=== PATIENT | female | born 1985 | race Hispanic/Latino ===

== ENCOUNTER 2017-11-28 10:34 | Day surgery (SDC) | payer BC ==
[2017-11-25 13:58] VITALS: BMI 25.8
[2017-11-28 11:53] VITALS: RESP 18
[2017-11-28 12:27] LABS: HEMOGLOBIN 12.9 g/dL (12.0-16.0); MEAN CELL VOLUME 95.1 fl (81.0-99.0); MEAN CORPUSCULAR HEMOGLOBIN 32.9 pg (27.0-31.0); MEAN CORPUSCULAR HGB CONC 34.6 g/dL (33.0-37.0); RBC 3.92 Mil/uL (3.80-5.20); RED CELL DISTRIBUTION WIDTH 12.8 % (11.5-14.5); WHITE BLOOD COUNT 3.5 K/uL (4.8-10.8)
[2017-11-28] MEDS ORDERED: Clindamycin 600mg/50ml NS 600 MG/50 ML BAG IVPB ONE (13:57)
[2017-11-28] MEDS ORDERED: Rocuronium 10 mg/ml (5 ml) ONE ×2 (14:28→18:22)
[2017-11-28] MEDS ORDERED: Succinylcholine 200 mg/10 ml Inj IV ONE (14:28)
[2017-11-28] MEDS ORDERED: Propofol 10 mg/ml Inj (20 ML) ONE (14:28)
[2017-11-28] MEDS ORDERED: Trimethobenzamide 200 mg/2 mL Inj IM ONE (15:44)
[2017-11-28] MEDS ORDERED: Neostigmine 1:1000 (1 mg/ml) Inj ONE (16:04)
[2017-11-28] MEDS ORDERED: Lidocaine 4% (Laryng-O-Jet) Kit MM ONE (16:04)
[2017-11-28] MEDS ORDERED: Bupivacaine HCl 0.25% PF (30 ml) Inj ONE (16:08)
[2017-11-28] MEDS ORDERED: Midazolam 2 MG/2 ML VIAL ONE (16:46)
[2017-11-28] MEDS ORDERED: Lactated Ringer's 1,000 ML IV ONE ×7 (16:47→19:40)
[2017-11-28] MEDS ORDERED: Dexamethasone 4 mg/1 ml ONE (17:06)
[2017-11-28] MEDS ORDERED: Bupivacaine 0.5% Inj(30mL) IJ ONE ×2 (17:30)
[2017-11-28] MEDS ORDERED: Desflurane Inhalation Anesthetic Liq (240 ml) ONE (17:54)
[2017-11-28] MEDS ORDERED: Bupivacaine HCl 0.5% PF (30 ml) Inj ONE (18:36)
[2017-11-28] MEDS ORDERED: Silver Nitrate Topical - Stick ONE (18:41)
[2017-11-28] MEDS ORDERED: Oxycodone/Acetaminophen 5/325 mg Tab PO PRN (18:53)
[2017-11-28] MEDS ORDERED: Lactated Ringer's 1,000 ML IV SCH ×2 (19:00→19:30)
[2017-11-28] MEDS ORDERED: HYDROmorphone 0.5 mg/0.5 ml ISec IVP PRN (19:23)
--- NOTE | 2017-11-28 19:23 | PCM.ANESB5 ---
Transverse Abdominis Block - Transverse Abdominis Plane Date of Procedure: 11/28/17 Anesthesiologist: Emerson Pre-Procedure Diagnosis: Endometriosis Post-Procedure Diagnosis: Same Procedure Performed: Transverse Abdominis Plane Nerve Block Left, Transverse Abdominis Plane Nerve Block Right - Procedure Transverse Abdominis Plane Nerve Block: The procedure was explained to the patient that it is for post-operative pain management and would be performed after surgery. Consent was obtained prior to surgery after a thorough discussion with the patient regarding the benefits and possible complications of transverse abdominis plane block. After the surgery had concluded and before the patient emerged from general anesthesia, time-out was held with the circulating nurse to re-confirm the appropriate block. With the patient in supine position, the ultrasound probe was placed transverse to the abdominal wall at the mid-axillary line above the iliac crest of the appropriate side. The skin, subcutaneous tissue, fat, external oblique muscle, internal oblique muscle, and the transverse abdominis muscle were identified. The general area of the block site was then prepped with Betadine three times. At this point, a # 21-gauge Stimuplex 4-inch needle was inserted posterior to and in plane with the ultrasound probe and directed anteriorly. Needle was advanced under direct ultrasound visualization until it reached the plane between the internal oblique and transverse abdominis muscles. After appropriate placement, 2mL of local anesthetic solution was injected. When the transverse abdominis plane was observed expanding in an ellipsoid way, the rest of the solution was slowly injected. A total of __20____ mL of __0.25%___ % ___ _bupivicaine was used for this block. The needle was then removed and sterile dressing was applied. Similarly, the same procedure was performed on the other side using the same medications. The patient had stable vital signs throughout and had no untoward complications after emergence from general anesthesia in the recovery room.
[2017-11-28] MEDS ORDERED: Morphine 4 MG/ML VIAL ONE ×2 (19:36→19:38)
[2017-11-28] MEDS ORDERED: Morphine 4 MG/ML VIAL IVP PRN (19:36)
[2017-11-28 20:01] VITALS: PULSE 76
[2017-11-28] MEDS ORDERED: Morphine 4 MG/ML VIAL IVP STA (20:05)
[2017-11-28 20:53] VITALS: BP 127/70; TEMP 97.5; O2SAT 99
--- NOTE | 2017-12-17 09:44 | PCM.OP ---
Operative Report - Operative Report Date of Surgery/Procedure: 11/28/17 Time of Surgery/Procedure: 14:00 Surgeon: Dr. Luke Whitaker Director Of Services: Dr. Gary Euceda Anesthesia/Sedation: general/Dr. Norman Pre-Operative Diagnosis: Abdominal pain and endometriosis Post-Operative Diagnosis: multiple dense adhesions to sigmoid colon Indication for Surgery: as above Operative Findings: as above Procedure/Operation Description: 1-lysis of adhsesion to the sigmoid colon and rectum. Brief History: This 32 year old woman was broufght to the operaing room by Dr. euceda when he noted sigmoid and rectal adhesions obscruing the pelvis. Intraoperative surgery consultation was requested. Description of the Procedure: Dr. Jaqueline valdez already initiated the robotic procedure (separate dictation Dr. Euceda). After taking control fo the robotic console the adhesiosn to the sigmnoid colon nwere lysed with blunt and sharp dissection with the aid of electrocautery. The adhesions invovled the sigmoid colon and rectum. Once the adenolysis was completed the operation was then tunred over to Dr. Euceda (separate dictation). Estimated Blood Loss: 5 cc Complications: none Discharge & Condition: stable
--- NOTE | 2017-12-17 23:28 | OP ---
PROCEDURE DATE: 11/28/2017 PREOPERATIVE DIAGNOSES: Dysmenorrhea, dyspareunia, pelvic pain, and rule out endometriosis. POSTOPERATIVE DIAGNOSES: Pelvic endometriosis plus dysmenorrhea, dyspareunia, pelvic pain, and rule out endometriosis. PROCEDURE PERFORMED: Cystoscopy with bilateral ureteral catheterization and injection of dye, laparoscopy operative, excision of endometriosis, bilateral ureterolysis and ovariolysis and to be dictated separately by Dr. Whitaker excision of rectal masses suggestive of endometriosis, and excision of anterior bladder mass. SURGEON: Gary Parsons MD EDGER LINER: Luke Whitaker MD from General Surgery. COMPLICATIONS: None. SPECIMEN: Multiple specimen of soft tissue containing endometriosis. Specimens coming from left bladder endometriosis and right bladder, periureteral, ovarian fossa, posterior cervical, cu-de-sac, and periureteral areas. INDICATION FOR PROCEDURE: The patient is a 32-year-old with clinical symptoms suggestive of endometriosis. Upon examination in the office, the patient had acute tenderness more seen in the left than right cul-de-sac areas suggestive of presence of endometriosis. She was counseled with regard to the risks and benefits of the procedure and likelihood of the procedure may ameliorate her symptoms. She was taken to the OR after signing the consent. DESCRIPTION OF PROCEDURE: After adequate anesthesia was obtained, the patient was placed in dorsal lithotomy position. She was prepped and draped and surgeon was gowned and gloved. Extreme care was placed to make sure that extensive paddy was present in all areas prone to pressure and that her hips were not either hyperextended or hyperflexed. A time-out was taken according to hospital policy and the procedure was started. A cystoscope was inserted into the bladder under direct visualization, the bladder appeared to be normal with no evidence of lesions or masses. Both ureteral ostia appeared to be in the normal anatomical position. The left ureter was then cannulated all the way to the distal ureter utilizing an open-ended 5-Tamazight catheter and 5 mL of IC-Green was injected into the catheter. At this point, the stent was removed and positioned in the right ureter all the way to the distal ureter where 5 mL of IC-Green was then injected. At this point, the cystoscope was removed and it was replaced by 16-Tamazight Welch. Attention was then to the vaginal area where a speculum was placed in the vagina. The anterior lip of the cervix was grasped. The cervix was gently dilated and uterine manipulator was placed in the uterus. Attention was in the abdominal area where after re-gowning and re-gloving, an open laparoscopy was performed utilizing standard technique and the fascia was entered in a sharp fashion and peritoneum in a blunt fashion. A cannula was inserted and the abdomen was insufflated. At this point, the pelvis was visualized revealing presence of endometriosis implants on the bladder, pelvic sidewalls left and right, cul-de-sac, and uterosacral areas. At this point, additional ports were inserted under direct visualization, left upper quadrant, left mid quadrant, and right upper quadrant. At this point, the da Ariel Xi robot was docked and the procedure was started. Attention was first on the anterior part of the bladder where 2 deep infiltrating areas were present in the bladder area. With great care to avoid entering the bladder mucosa, a large area of peritoneum overlying the bladder was excised containing endometriosis. The integrity of the bladder was checked after this wide excision where an abundant amount of endometrium-containing endometriosis was sent to Pathology. It was multifocal with multiple areas both from the left and the right side. Attention was then on the posterior aspect of the uterus where after elevating the ovary, utilizing the fluorescent technology, the ureter was identified and peritoneum was dissected. The ureter was dissected off the peritoneum and an area of peritoneum-containing endometriosis was dissected with the upper limit of the dissection being the utero-ovarian ligament, the lower margin of the ovarian fossa and the inferior margin in the uterosacral ligament. At this point, the posterior aspect of the cervix was incised transverse and the dissection was performed opening the rectovaginal area to dissect an area of endometriosis. The area dissected was quite wide, a small defect was noted in the posterior vaginal area and was closed with a running suture of 2-0 V-Loc. The excision then continued all the way to the anterior aspect of the rectovaginal septum. At this point, attention was on the right hand side where again after identifying the ureter, the peritoneum was entered and a full dissection was performed dissecting the ureter laterally and the peritoneum medially excising an area of endometriosis-containing tissue. Additional disease was present in the perirectal area in the right and left side. Dr. Whitaker from General Surgery was called in and he completed the excision of that area, he will dictate that separately. At this point, we checked for hemostasis and appeared to be excellent. There were some areas of patina inflammatory type material present in the posterior aspect of the uterus, which was not endometriosis, but it looked quite inflammatory, which was vaporized utilizing plasma energy. At this point, it was checked for hemostasis and appeared to be excellent. The [employer] robot was then docked. The instruments were removed. The abdomen was desufflated. The incision was closed in layer utilizing 0 PDS for the fascia and 4-0 Monocryl for the skin. Gary Parsons MD MTDD
== END 2017-11-28 22:25 | disposition home or self-care (01) ==
LOC: H.OPSURG 10:34 → H.PEDS 20:48 → H.OPSURG 22:25
PROVIDERS: ATTEND Obstetrics & Gynecology Reproductive Endocrinology
DX: N80.5 Endometriosis of intestine (principal); N80.1 Endometriosis of ovary; N80.0 Endometriosis of uterus; N73.6 Female pelvic peritoneal adhesions (postinfective); N94.6 Dysmenorrhea, unspecified
CPT/HCPCS: 36415; 45171; 58662; 64486; 85027; 86850; 86900; 88305; C1729; J0131; J0330; J1100; J1885; J2001; J2250; J2270; J2405; J2704; J2710; J3010; J7030; J7040; J7120